=== PATIENT | male | born 1985 | race Caucasian/White ===

== ENCOUNTER 2023-11-23 07:22 | Day surgery (SDC) | payer OTHER ==
[2023-11-17 11:42] LABS: BASOPHILS % (AUTO) 0.3 % (0-1); EOSINOPHILS # (AUTO) 0.1 X10'3 (0-0.9); EOSINOPHILS % (AUTO) 1.8 % (0-6); LYMPHOCYTES # (AUTO) 2.8 X10'3 (1.1-4.8); LYMPHOCYTES % (AUTO) 39.1 % (21-51); MEAN CORPUSCULAR HEMOGLOBIN 29.5 PG (27.0-31.0); MEAN CORPUSCULAR HGB CONC 33.9 g/dL (33.0-36.5); MEAN CORPUSCULAR VOLUME 87.1 FL (78-98); MEAN PLATELET VOLUME 9.2 FL (7.4-10.4); MONOCYTES # (AUTO) 0.8 X10'3 (0-0.9); MONOCYTES % (AUTO) 11.3 % (2-12); NEUTROPHILS # (AUTO) 3.4 X10'3 (1.8-7.7); NEUTROPHILS % (AUTO) 47.5 % (42-75); PRE OP HEMATOCRIT 47.8 % (42.0-52.0); PRE OP HEMOGLOBIN 16.2 g/dL (14.0-17.9); PRE OP PLATELET COUNT 200 X10'3 (140-440); PRE OP WHITE BLOOD COUNT 7.1 10'3 (4.8-10.8); RED BLOOD COUNT 5.48 X10'6 (4.70-6.10); RED CELL DISTRIBUTION WIDTH 13.7 % (11.5-14.5)
[2023-11-17 12:22] LABS: ALBUMIN 3.9 G/DL (3.4-5.0); ALBUMIN/GLOBULIN RATIO 1.1 (1.1-1.5); ALKALINE PHOSPHATASE 59 IU/L (46-116); BLOOD UREA NITROGEN 14 MG/DL (7-18); BUN/CREATININE RATIO 19.4 (10.0-20.0); CALCIUM 9.2 MG/DL (8.5-10.1); CHLORIDE 104 MMOL/L (99-107); CREATININE 0.72 MG/DL (0.60-1.10); PRE OP ALT 33 U/L (30-65); PRE OP ANION GAP 8 (8-16); PRE OP AST 15 U/L (10-37); PRE OP BILIRUB, TOTAL 0.4 MG/DL (0.0-1.0); PRE OP GLUCOSE 97 MG/DL (70-104); PRE OP POTASSIUM 4.1 MMOL/L (3.4-5.1); PRE OP SODIUM 139 MMOL/L (135-145); TOTAL CARBON DIOXIDE 27.3 MMOL/L (24-32); TOTAL PROTEIN 7.6 G/DL (6.4-8.2); eGFR > 90 ML/MIN
[2023-11-23] VITALS (14 sets, daily range): BP systolic 96–119; BP diastolic 47–69; PULSE 61–78; RESP 13–16; TEMP 97.6; O2SAT 92–97
[~2023-11-23] VITALS: Ht 188 cm; Wt 92.6 kg
[2023-11-23] MEDS: cefazolin 2gm/D5W 100mL 100 ML IV ONE (05:30)
[~2023-11-23 07:22] MED LIST: ACET-1025 PO
[2023-11-23] MEDS: ringers solution, lacted 1,000 ML IV SCH (08:22)
[2023-11-23] MEDS: famotidine 20mg tablet PO ONE (08:22)
[2023-11-23] MEDS ORDERED: morphine 2 MG/ML inj. syringe IV PRN (09:25)
[2023-11-23] MEDS ORDERED: fentaNYL/PF 50MCG/1 ML 2ML syringe IV PRN ×2 (09:25)
[2023-11-23] MEDS ORDERED: ringers solution, lacted 1,000 ML IV SCH (09:25)
[2023-11-23] MEDS ORDERED: morphine 4 MG/ML inj SYRINge IV PRN (09:25)
[2023-11-23] MEDS ORDERED: labetalol 20mg/4ml (5mg/ml) syringe IV PRN (09:25)
[2023-11-23] MEDS ORDERED: hydrALAZINE 20mg/ml inj. IV PRN (09:25)
[2023-11-23] MEDS ORDERED: ondansetron/PF 4mg/2ml inj IV PRN (09:25)
[2023-11-23] MEDS ORDERED: midazolam 1 mg/ML 2ml injection ONE (10:53)
[2023-11-23] MEDS ORDERED: fentaNYL/PF 50MCG/1 ML 2ML syringe ONE (10:53)
[2023-11-23] MEDS ORDERED: LIDOcaine 2% (20mg/ml) 5ml vial ONE (10:54)
[2023-11-23] MEDS ORDERED: propofol inj 20 ML IV ONE (10:55)
[2023-11-23] MEDS ORDERED: ROPIVAcaine 0.5% (5mg/ml) 30ml vial ONE (10:55)
[2023-11-23] MEDS ORDERED: ondansetron/PF 4mg/2ml inj ONE (11:19)
[2023-11-23] MEDS ORDERED: tranexamic acid 100mg/ml inj. ONE (11:21)
[2023-11-23] MEDS ORDERED: acetaminophen 1,000mg/100ml IV 100 ML IV ONE (11:23)
[2023-11-23] MEDS: vancomycin 1,000mg inj ONE (12:11)
[2023-11-23] MEDS ORDERED: ceFAZolin 1000mg inj ONE (12:23)
== END 2023-11-23 16:45 | disposition home or self-care (01) ==
LOC: PAS 07:22
PROVIDERS: ATTEND Specialist
DX: S46.811A Strain of other muscles, fascia and tendons at shoulder and upper arm level, right arm, initial encounter (principal); G89.18 Other acute postprocedural pain; G47.33 Obstructive sleep apnea (adult) (pediatric); Z79.890 Hormone replacement therapy; Z98.890 Other specified postprocedural states; X58.XXXA Exposure to other specified factors, initial encounter; Y93.89 Activity, other specified; Y92.89 Other specified places as the place of occurrence of the external cause; Y99.8 Other external cause status
CPT/HCPCS: 24341; 36415; 64415; 73060; 80053; 82948; 85025; C1713; J0131; J0690; J2250; J2405; J2704; J2795; J3010; J3370; J3490; J7030; J7120; Z7506; Z7508; Z7512; 76000; A4215; A4565; A4618; A6253; A6449; A6455; A7000; C1769